=== PATIENT | female | born 1950 | race Caucasian/White ===

== ENCOUNTER 2017-10-04 19:53 | Inpatient (IN) | payer MEDICARE, MEDICAID ==
[~2017-10-04] VITALS: Ht 167.6 cm; Wt 124.8 kg
[~2017-10-04 19:53] MED LIST: HYDR-3965 PO; IBUP-1984 PO; LOSA1TAB39 PO; PRAV20TA4 PO; SERT50TA PO
[2017-10-04] MEDS ORDERED: enoxaparin 100mg/ml syringe SUBCUT ONE (20:20)
[2017-10-04] MEDS ORDERED: metoprolol tartrate 1mg/ml inj IV ONE (20:20)
[2017-10-04] MEDS ORDERED: enoxaparin 60mg/0.6ml syringe SUBCUT ONE (20:25)
[2017-10-04 20:56] LABS: BASOPHILS % (AUTO) 0.3 % (0-1); EOSINOPHILS # (AUTO) 0.2 X10'3 (0-0.9); EOSINOPHILS % (AUTO) 1.4 % (0-6); HEMOGLOBIN 13.5 g/dl (12.0-16.0); LYMPHOCYTES # (AUTO) 1.1 X10'3 (1.1-4.8); MEAN CORPUSCULAR HEMOGLOBIN 32.7 PG (27.0-31.0); MEAN CORPUSCULAR HGB CONC 33.6 % (33.0-36.5); MEAN CORPUSCULAR VOLUME 97.3 FL (78-98); MEAN PLATELET VOLUME 8.9 FL (7.4-10.4); MONOCYTES # (AUTO) 0.9 X10'3 (0-0.9); MONOCYTES % (AUTO) 7.3 % (2-12); NEUTROPHILS # (AUTO) 9.7 X10'3 (1.8-7.7); PLATELET COUNT 260 X10'3 (140-440); RED BLOOD COUNT 4.12 X10'6 (4.20-5.60); RED CELL DISTRIBUTION WIDTH 13.8 % (11.5-14.5); WHITE BLOOD COUNT 11.9 X10'3 (4.5-11.0)
[2017-10-04 21:14] LABS: ALANINE AMINOTRANSFERASE 92 U/L (12-78); ALBUMIN 3.1 G/DL (3.4-5.0); ALBUMIN/GLOBULIN RATIO 0.7 (1.1-1.5); ALKALINE PHOSPHATASE 132 IU/L (46-116); ANION GAP 10 (8-16); ASPARTATE AMINO TRANSFERASE 96 U/L (10-37); BILIRUBIN,TOTAL 1.2 MG/DL (0.1-1.0); BLOOD UREA NITROGEN 16 MG/DL (7-18); CALCIUM 9.7 MG/DL (8.5-10.1); CHLORIDE 101 MMOL/L (99-107); CREATININE 1.14 MG/DL (0.40-0.90); GLUCOSE 120 MG/DL (70-104); POTASSIUM 3.3 MMOL/L (3.5-5.1); SODIUM 138 MMOL/L (135-145); TOTAL CARBON DIOXIDE 27.2 MMOL/L (24-32); TOTAL PROTEIN 7.4 G/DL (6.4-8.2); eGFR 48 ML/MIN
[2017-10-04] MEDS ORDERED: verapamil 2.5 mg/ml inj IV ONE (21:35)
[2017-10-04] MEDS ORDERED: diltiazem-NS 100mg/100ml 100 ML IV ONE (21:35)
[2017-10-04 21:37] LABS: URINE AMPHETAMINE SCREEN POSITIVE (Neg); URINE BARBITUATE SCREEN NEGATIVE (Neg); URINE BENZODIAZEPINES SCREEN NEGATIVE (Neg); URINE CANNABINOID SCREEN NEGATIVE (Neg); URINE COCAINE SCREEN NEGATIVE (Neg); URINE METHADONE SCREEN NEGATIVE (Neg); URINE OPIATE SCREEN POSITIVE (Neg); URINE PHENCYCLIDINE SCREEN NEGATIVE (Neg)
[2017-10-04 21:38] LABS: CLARITY,URINE SLIGHTLY CLOUDY (Clear); COLOR,URINE YELLOW (Yellow); GLUCOSE, URINE NEGATIVE (Neg); KETONES,URINE NEGATIVE (Neg); LEUKOCYTE ESTERASE ,URINE NEGATIVE (Neg); NITRITES, URINE NEGATIVE (Neg); OCCULT BLOOD,URINE TRACE-INTACT (Neg); PROTEIN,URINE 30 mg/dl (Neg)
[2017-10-04 21:39] LABS: UA COLLECTION TYPE STRAIGHT CATH
[2017-10-04 21:41] LABS: CKMB RELATIVE INDEX 1.1 RATIO (0-2.5); CREATINE KINASE 1699 U/L (26-192); MAGNESIUM 1.6 MG/DL (1.5-2.4)
[2017-10-04 21:57] LABS: FINE GRANULAR CAST 0-3 /LPF (NEGATIVE); HYALINE CASTS 0-3 /LPF (NEGATIVE); SQUAMOUS EPITHELIAL CELL,UR MANY /LPF (FEW)
[2017-10-04 21:58] LABS: BACTERIA,URINE FEW /HPF (Neg); MUCUS STRANDS MODERATE /LPF (Neg); RBC,URINE 0-2 /HPF (0-2); WBC,URINE 0-4 /HPF (0-4)
[2017-10-04] MEDS ORDERED: normal saline 1000ML IV soln IVB ONE (22:25)
[2017-10-04] MEDS ORDERED: potassium 10mEq/100ml NS w/LIDOcaine (10mg/bag) IV ONE (22:25)
[2017-10-04] MEDS ORDERED: mag hydrox/Alum hydrox/simeth 30ml oral suspension PO PRN (23:35)
[2017-10-04] MEDS ORDERED: magnesium hydroxide 30ml (MOM) UD suspension PO PRN (23:35)
[2017-10-04] MEDS ORDERED: acetaminophen 325mg tablet PO PRN ×2 (23:35)
[2017-10-04] MEDS ORDERED: ondansetron/PF 4mg/2ml inj IV PRN (23:35)
[2017-10-05] VITALS (15 sets, daily range): BP systolic 99–140; BP diastolic 50–92
[2017-10-05] MEDS: diltiazem-NS 100mg/100ml 100 ML IV SCH ×2 (02:14→22:00)
[2017-10-05 06:10] LABS: BASOPHILS % (AUTO) 0.4 % (0-1); EOSINOPHILS # (AUTO) 0.1 X10'3 (0-0.9); EOSINOPHILS % (AUTO) 1.2 % (0-6); HEMATOCRIT 36.7 % (35.0-45.0); HEMOGLOBIN 12.1 g/dl (12.0-16.0); LYMPHOCYTES # (AUTO) 1.4 X10'3 (1.1-4.8); LYMPHOCYTES % (AUTO) 12.3 % (21-51); MEAN CORPUSCULAR HEMOGLOBIN 32.6 PG (27.0-31.0); MEAN CORPUSCULAR HGB CONC 32.9 % (33.0-36.5); MEAN CORPUSCULAR VOLUME 99.3 FL (78-98); MONOCYTES # (AUTO) 0.9 X10'3 (0-0.9); MONOCYTES % (AUTO) 8.6 % (2-12); NEUTROPHILS # (AUTO) 8.5 X10'3 (1.8-7.7); NEUTROPHILS % (AUTO) 77.5 % (42-75); PLATELET COUNT 231 X10'3 (140-440); RED BLOOD COUNT 3.69 X10'6 (4.20-5.60); RED CELL DISTRIBUTION WIDTH 13.9 % (11.5-14.5); WHITE BLOOD COUNT 10.9 X10'3 (4.5-11.0)
[2017-10-05 06:39] LABS: ALANINE AMINOTRANSFERASE 72 U/L (12-78); ALBUMIN 2.6 G/DL (3.4-5.0); ALBUMIN/GLOBULIN RATIO 0.7 (1.1-1.5); ALKALINE PHOSPHATASE 104 IU/L (46-116); ANION GAP 6 (8-16); ASPARTATE AMINO TRANSFERASE 73 U/L (10-37); BILIRUBIN,DIRECT 0.4 MG/DL (0-0.3); BILIRUBIN,TOTAL 1.1 MG/DL (0.1-1.0); BLOOD UREA NITROGEN 14 MG/DL (7-18); CALCIUM 9.5 MG/DL (8.5-10.1); CHLORIDE 104 MMOL/L (99-107); CREATINE KINASE 934 U/L (26-192); CREATININE 1.08 MG/DL (0.40-0.90); GLUCOSE 104 MG/DL (70-104); POTASSIUM 3.3 MMOL/L (3.5-5.1); SODIUM 136 MMOL/L (135-145); TOTAL CARBON DIOXIDE 26.4 MMOL/L (24-32); TOTAL PROTEIN 6.2 G/DL (6.4-8.2); eGFR 51 ML/MIN
[2017-10-05] MEDS: HYDROmorphone 1 mg/ml syringe IV PRN (13:48)
[2017-10-05] MEDS: furosemide 20MG tablet PO SCH ×2 (16:10→19:33)
[2017-10-05] MEDS ORDERED: potassium Cl 20 mEq SR tablet PO PRN (19:25)
[2017-10-05] MEDS ORDERED: potassium Cl 40MEQ/NS 500ml 500 ML IV PRN ×2 (19:25)
[2017-10-05] MEDS: carVEDilol 3.125mg tablet PO SCH (19:30)
[2017-10-05] MEDS: potassium Cl 20 mEq SR tablet PO PRN (19:33)
[2017-10-05] MEDS: enoxaparin 60mg/0.6ml syringe SUBCUT SCH (19:34)
[2017-10-06] VITALS (10 sets, daily range): BP systolic 93–131; BP diastolic 45–70
[2017-10-06] MEDS: potassium Cl 20 mEq SR tablet PO PRN ×4 (04:34→16:21)
[2017-10-06 05:44] LABS: BASOPHILS # (AUTO) 0.1 X10'3 (0-0.2); BASOPHILS % (AUTO) 0.5 % (0-1); EOSINOPHILS # (AUTO) 0.3 X10'3 (0-0.9); EOSINOPHILS % (AUTO) 2.9 % (0-6); HEMATOCRIT 33.6 % (35.0-45.0); HEMOGLOBIN 11.3 g/dl (12.0-16.0); LYMPHOCYTES # (AUTO) 1.2 X10'3 (1.1-4.8); LYMPHOCYTES % (AUTO) 11.6 % (21-51); MEAN CORPUSCULAR HEMOGLOBIN 32.5 PG (27.0-31.0); MEAN CORPUSCULAR HGB CONC 33.7 % (33.0-36.5); MEAN CORPUSCULAR VOLUME 96.4 FL (78-98); MEAN PLATELET VOLUME 8.9 FL (7.4-10.4); MONOCYTES % (AUTO) 9.5 % (2-12); NEUTROPHILS % (AUTO) 75.5 % (42-75); PLATELET COUNT 223 X10'3 (140-440); RED BLOOD COUNT 3.48 X10'6 (4.20-5.60); WHITE BLOOD COUNT 10.6 X10'3 (4.5-11.0)
[2017-10-06 05:58] LABS: ALBUMIN 2.3 G/DL (3.4-5.0); ANION GAP 9 (8-16); BLOOD UREA NITROGEN 11 MG/DL (7-18); BUN/CREATININE RATIO 12.4 (6.6-38.0); CALCIUM 8.8 MG/DL (8.5-10.1); CHLORIDE 102 MMOL/L (99-107); CREATININE 0.89 MG/DL (0.40-0.90); GLUCOSE 100 MG/DL (70-104); POTASSIUM 3.2 MMOL/L (3.5-5.1); SODIUM 138 MMOL/L (135-145); TOTAL CARBON DIOXIDE 27.2 MMOL/L (24-32); eGFR 64 ML/MIN
[2017-10-06] MEDS: diltiazem-NS 100mg/100ml 100 ML IV SCH (06:43)
[2017-10-06] MEDS: furosemide 20MG tablet PO SCH ×2 (08:36→20:23)
[2017-10-06] MEDS: carVEDilol 3.125mg tablet PO SCH ×2 (08:36→20:00)
[2017-10-06] MEDS: lisinopril 2.5mg tablet PO SCH (08:37)
[2017-10-06] MEDS: enoxaparin 60mg/0.6ml syringe SUBCUT SCH (08:38)
[2017-10-06] MEDS: HYDROmorphone 1 mg/ml syringe IV PRN (12:31)
[2017-10-06] MEDS ORDERED: temazepam 15mg capsule PO PRN (16:45)
[2017-10-06] MEDS: diltiazem CD 180mg cap (once-daily) PO SCH (20:23)
[2017-10-06] MEDS: apixaban 5mg tablet PO SCH (20:23)
[2017-10-07 03:00] VITALS: BP 107/59
[2017-10-07 06:07] LABS: BASOPHILS % (AUTO) 0.5 % (0-1); EOSINOPHILS # (AUTO) 0.3 X10'3 (0-0.9); EOSINOPHILS % (AUTO) 2.8 % (0-6); HEMATOCRIT 34.1 % (35.0-45.0); HEMOGLOBIN 11.4 g/dl (12.0-16.0); LYMPHOCYTES % (AUTO) 10.3 % (21-51); MEAN CORPUSCULAR HEMOGLOBIN 32.8 PG (27.0-31.0); MEAN CORPUSCULAR HGB CONC 33.5 % (33.0-36.5); MEAN CORPUSCULAR VOLUME 97.6 FL (78-98); MEAN PLATELET VOLUME 9.1 FL (7.4-10.4); MONOCYTES # (AUTO) 0.9 X10'3 (0-0.9); NEUTROPHILS # (AUTO) 7.5 X10'3 (1.8-7.7); NEUTROPHILS % (AUTO) 77.4 % (42-75); PLATELET COUNT 213 X10'3 (140-440); RED BLOOD COUNT 3.49 X10'6 (4.20-5.60); RED CELL DISTRIBUTION WIDTH 14.1 % (11.5-14.5); WHITE BLOOD COUNT 9.7 X10'3 (4.5-11.0)
[2017-10-07 06:21] LABS: ALBUMIN 2.2 G/DL (3.4-5.0); ANION GAP 8 (8-16); BLOOD UREA NITROGEN 12 MG/DL (7-18); BUN/CREATININE RATIO 12.1 (6.6-38.0); CALCIUM 9.4 MG/DL (8.5-10.1); CHLORIDE 102 MMOL/L (99-107); CREATININE 0.99 MG/DL (0.40-0.90); GLUCOSE 96 MG/DL (70-104); POTASSIUM 3.5 MMOL/L (3.5-5.1); SODIUM 136 MMOL/L (135-145); TOTAL CARBON DIOXIDE 26.2 MMOL/L (24-32); eGFR 56 ML/MIN
[2017-10-07 07:00] VITALS: BP 106/68
[2017-10-07] MEDS: diltiazem CD 180mg cap (once-daily) PO SCH (07:43)
[2017-10-07] MEDS: lisinopril 2.5mg tablet PO SCH (07:43)
[2017-10-07] MEDS: furosemide 20MG tablet PO SCH (07:44)
[2017-10-07] MEDS: HYDROmorphone 1 mg/ml syringe IV PRN ×2 (07:44→13:35)
[2017-10-07] MEDS: carVEDilol 3.125mg tablet PO SCH (07:44)
[2017-10-07] MEDS: apixaban 5mg tablet PO SCH (07:44)
[2017-10-07 11:00] VITALS: BP 93/52
[2017-10-07 15:00] VITALS: BP 101/57
== END 2017-10-07 17:00 | DRG 564 ==
LOC: ER 19:54 → ED HOLD 23:31 → PCU 3S 10-05 01:00
PROVIDERS: ADMIT Internal Medicine; ATTEND Internal Medicine
DX: T79.6XXA Traumatic ischemia of muscle, initial encounter (principal); I50.31 Acute diastolic (congestive) heart failure; Z68.41 Body mass index [BMI] 40.0-44.9, adult; I48.91 Unspecified atrial fibrillation; I11.0 Hypertensive heart disease with heart failure; F15.10 Other stimulant abuse, uncomplicated; E66.01 Morbid (severe) obesity due to excess calories; F17.210 Nicotine dependence, cigarettes, uncomplicated; G89.29 Other chronic pain; H35.30 Unspecified macular degeneration; M16.11 Unilateral primary osteoarthritis, right hip; E87.6 Hypokalemia; F32.9 Major depressive disorder, single episode, unspecified; M17.0 Bilateral primary osteoarthritis of knee; W06.XXXA Fall from bed, initial encounter; E78.5 Hyperlipidemia, unspecified; R79.89 Other specified abnormal findings of blood chemistry; Z79.01 Long term (current) use of anticoagulants; Y93.89 Activity, other specified; Y99.8 Other external cause status; Y92.092 Bedroom in other non-institutional residence as the place of occurrence of the external cause
CPT/HCPCS: 36415; 71045; 72170; 73700; 80048; 80053; 80076; 80305; 81001; 82550; 82553; 83735; 83880; 84484; 85025; 87070; 93005; 93306; 96374; 96375; 97110; 97162; 97530; 99285; A4315; A4649; A6212; A6250; J1170; J1650; J2405; J3480; J3490; J7030

== ENCOUNTER 2018-07-16 15:33 | Emergency (ER) | payer MEDICARE, MEDICAID ==
[~2018-07-16] VITALS: Ht 167.6 cm; Wt 113.6 kg
[~2018-07-16 15:33] MED LIST changes: -HYDR-3965 PO; -LOSA1TAB39 PO; -PRAV20TA4 PO; -SERT50TA PO
[2018-07-16 16:28] LABS: BASOPHILS # (AUTO) 0.1 X10'3 (0-0.2); BASOPHILS % (AUTO) 1.2 % (0-1); EOSINOPHILS # (AUTO) 0.2 X10'3 (0-0.9); HEMATOCRIT 40.5 % (35.0-45.0); HEMOGLOBIN 13.5 g/dl (12.0-16.0); LYMPHOCYTES % (AUTO) 11.6 % (21-51); MEAN CORPUSCULAR HEMOGLOBIN 33.4 PG (27.0-31.0); MEAN CORPUSCULAR HGB CONC 33.4 g/dL (33.0-36.5); MEAN PLATELET VOLUME 8.3 FL (7.4-10.4); MONOCYTES # (AUTO) 0.7 X10'3 (0-0.9); MONOCYTES % (AUTO) 8.1 % (2-12); NEUTROPHILS % (AUTO) 77.1 % (42-75); PLATELET COUNT 345 X10'3 (140-440); RED BLOOD COUNT 4.05 X10'6 (4.20-5.60); RED CELL DISTRIBUTION WIDTH 13.8 % (11.5-14.5); WHITE BLOOD COUNT 9.1 X10'3 (4.5-11.0)
[2018-07-16 16:41] LABS: INR 1.1 INR; PARTIAL THROMBOPLASTIN TIME 27 SECONDS (22-32)
[2018-07-16 16:44] LABS: ALANINE AMINOTRANSFERASE 28 U/L (12-78); ALBUMIN 3.6 G/DL (3.4-5.0); ALBUMIN/GLOBULIN RATIO 1.1 (1.1-1.5); ALKALINE PHOSPHATASE 141 IU/L (46-116); ANION GAP 10 (8-16); ASPARTATE AMINO TRANSFERASE 24 U/L (10-37); BILIRUBIN,TOTAL 0.9 MG/DL (0.1-1.0); BLOOD UREA NITROGEN 28 MG/DL (7-18); BUN/CREATININE RATIO 23.5 (6.6-38.0); CALCIUM 9.8 MG/DL (8.5-10.1); CHLORIDE 108 MMOL/L (99-107); CREATININE 1.19 MG/DL (0.40-0.90); GLUCOSE 103 MG/DL (70-104); POTASSIUM 3.9 MMOL/L (3.5-5.1); SODIUM 140 MMOL/L (135-145); TOTAL CARBON DIOXIDE 22.1 MMOL/L (24-32); TOTAL PROTEIN 6.9 G/DL (6.4-8.2); eGFR 45 ML/MIN
[2018-07-16] MEDS ORDERED: CARV3.122 PO (16:44)
[2018-07-16] MEDS ORDERED: OMEP-50 PO (16:44)
[2018-07-16] MEDS ORDERED: RIVA20TA PO (16:44)
[2018-07-16] MEDS ORDERED: POTA10TA36 PO (16:44)
[2018-07-16] MEDS ORDERED: ALEN70TA13 PO (16:44)
[2018-07-16] MEDS ORDERED: FURO40TA4 PO (16:44)
[2018-07-16] MEDS ORDERED: DILT180C95 PO (16:44)
[2018-07-16 16:53] LABS: CLARITY,URINE CLEAR (Clear); COLOR,URINE YELLOW (Yellow); GLUCOSE, URINE NEGATIVE (Neg); KETONES,URINE NEGATIVE (Neg); LEUKOCYTE ESTERASE ,URINE TRACE (Neg); NITRITES, URINE NEGATIVE (Neg); OCCULT BLOOD,URINE NEGATIVE (Neg); PROTEIN,URINE NEGATIVE (Neg); UROBILINOGEN,URINE 0.2 E.U/dL (0.2-1.0)
[2018-07-16 16:58] LABS: UA COLLECTION TYPE NON-SPECIFIED
[2018-07-16 17:00] LABS: BACTERIA,URINE FEW /HPF (Neg); MUCUS STRANDS FEW /LPF (Neg); RBC,URINE 0-2 /HPF (0-2); SQUAMOUS EPITHELIAL CELL,UR MANY /LPF (FEW)
[2018-07-16] MEDS ORDERED: normal saline 1000ML IV soln IVB ONE (18:50)
[2018-07-16] MEDS ORDERED: HYDROcodone/acetaminophen 10/325mg tab PO ONE (18:55)
[2018-07-16 19:13] LABS: URINE AMPHETAMINE SCREEN POSITIVE (Neg); URINE BARBITUATE SCREEN NEGATIVE (Neg); URINE BENZODIAZEPINES SCREEN NEGATIVE (Neg); URINE CANNABINOID SCREEN POSITIVE (Neg); URINE COCAINE SCREEN NEGATIVE (Neg); URINE METHADONE SCREEN NEGATIVE (Neg); URINE OPIATE SCREEN NEGATIVE (Neg); URINE PHENCYCLIDINE SCREEN NEGATIVE (Neg)
[2018-07-16 19:14] LABS: ETHANOL < 0.010 GM/DL (0.0-0.010)
[2018-07-16 19:27] VITALS: BP 147/83
--- NOTE | 2018-07-16 19:27 | NUR ---
hr 120, otherwise bss. pt has dc paperwork ready. just given norco and ns 1 liter bolus infusing. pt request to talke with md about results. i will updated dr. madsen. pt's brother at bedside.
== END 2018-07-16 20:32 | disposition home or self-care (01) ==
LOC: ER 15:33
DX: R55 Syncope and collapse (principal); E86.0 Dehydration; I95.9 Hypotension, unspecified; I50.9 Heart failure, unspecified; Z91.81 History of falling; F15.10 Other stimulant abuse, uncomplicated; R26.2 Difficulty in walking, not elsewhere classified; M25.551 Pain in right hip; Z79.899 Other long term (current) drug therapy; W18.49XA Other slipping, tripping and stumbling without falling, initial encounter; Y93.01 Activity, walking, marching and hiking; Y92.096 Garden or yard of other non-institutional residence as the place of occurrence of the external cause; Y99.9 Unspecified external cause status; I51.7 Cardiomegaly
CPT/HCPCS: 36415; 51702; 70450; 71045; 73502; 80053; 80305; 80320; 81001; 85025; 85610; 85730; 86885; 86900; 86901; 93005; 99284; J7030

== ENCOUNTER 2019-02-17 15:22 | Inpatient (IN) | payer MEDICARE, MEDICAID ==
[~2019-02-17] VITALS: Ht 167.6 cm; Wt 113.6 kg
[~2019-02-17 15:22] MED LIST changes: +ALEN70TA13 PO; +CARV3.122 PO; +DILT-36 PO; +FURO40TA4 PO; +OMEP-50 PO; +POTA10TA36 PO; +RIVA20TA PO
[2019-02-17 16:40] LABS: ALANINE AMINOTRANSFERASE 18 U/L (12-78); ALBUMIN 3.6 G/DL (3.4-5.0); ALBUMIN/GLOBULIN RATIO 0.9 (1.1-1.5); ALKALINE PHOSPHATASE 171 IU/L (46-116); ANION GAP 10 (8-16); ASPARTATE AMINO TRANSFERASE 49 U/L (10-37); BILIRUBIN,TOTAL 1.6 MG/DL (0.1-1.0); BLOOD UREA NITROGEN 14 MG/DL (7-18); BUN/CREATININE RATIO 17.1 (6.6-38.0); CALCIUM 9.9 MG/DL (8.5-10.1); CHLORIDE 104 MMOL/L (99-107); CREATININE 0.82 MG/DL (0.40-0.90); GLUCOSE 118 MG/DL (70-104); POTASSIUM 4.1 MMOL/L (3.5-5.1); SODIUM 138 MMOL/L (135-145); TOTAL CARBON DIOXIDE 23.8 MMOL/L (24-32); TOTAL PROTEIN 7.6 G/DL (6.4-8.2); eGFR 70 ML/MIN
[2019-02-17 16:43] LABS: PARTIAL THROMBOPLASTIN TIME 26 SECONDS (22-32)
[2019-02-17] MEDS ORDERED: aspirin 81mg tab.chew PO ONE (16:50)
[2019-02-17] MEDS ORDERED: heparin 10,000 units/1 ML INJ IV ONE (17:00)
[2019-02-17 17:02] LABS: BASOPHILS # (AUTO) 0.1 X10'3 (0-0.2); EOSINOPHILS % (AUTO) 0.1 % (0-6); HEMATOCRIT 38.2 % (35.0-45.0); HEMOGLOBIN 12.8 g/dl (12.0-16.0); LYMPHOCYTES # (AUTO) 0.7 X10'3 (1.1-4.8); LYMPHOCYTES % (AUTO) 8.3 % (21-51); MEAN CORPUSCULAR HEMOGLOBIN 33.2 PG (27.0-31.0); MEAN CORPUSCULAR HGB CONC 33.4 g/dL (33.0-36.5); MEAN CORPUSCULAR VOLUME 99.4 FL (78-98); MEAN PLATELET VOLUME 8.5 FL (7.4-10.4); MONOCYTES # (AUTO) 0.6 X10'3 (0-0.9); MONOCYTES % (AUTO) 6.9 % (2-12); NEUTROPHILS # (AUTO) 7.4 X10'3 (1.8-7.7); NEUTROPHILS % (AUTO) 83.7 % (42-75); PLATELET COUNT 244 X10'3 (140-440); RED BLOOD COUNT 3.84 X10'6 (4.20-5.60); RED CELL DISTRIBUTION WIDTH 15.6 % (11.5-14.5); WHITE BLOOD COUNT 8.9 X10'3 (4.5-11.0)
[2019-02-17 17:15] LABS: ETHANOL < 0.010 GM/DL (0.0-0.010)
[2019-02-17] MEDS: metoprolol tartrate 1mg/ml inj IV SCH ×9 (17:15→19:58)
[2019-02-17] MEDS: heparin 25,000 UNIT/250ml bag 250 ML IV SCH (17:31)
[2019-02-17] MEDS ORDERED: ondansetron/PF 4mg/2ml inj IV PRN (18:00)
[2019-02-17] MEDS ORDERED: mag hydrox/Alum hydrox/simeth 30ml oral suspension PO PRN (18:00)
[2019-02-17] MEDS ORDERED: magnesium hydroxide 30ml (MOM) UD suspension PO PRN (18:00)
[2019-02-17] MEDS ORDERED: acetaminophen 325mg tablet PO PRN (18:00)
[2019-02-17] MEDS ORDERED: morphine 2 MG/ML inj. syringe IV PRN (18:00)
[2019-02-17] MEDS ORDERED: LORazepam 2 mg/ml vial IV PRN (18:15)
[2019-02-17] MEDS: normal saline 1000ml 1,000 ML IV SCH (18:44)
[2019-02-17 19:21] LABS: CLARITY,URINE SLIGHTLY CLOUDY (Clear); COLOR,URINE AMBER (Yellow); GLUCOSE, URINE NEGATIVE (Neg); KETONES,URINE TRACE mg/dl (Neg); LEUKOCYTE ESTERASE ,URINE SMALL (Neg); NITRITES, URINE POSITIVE (Neg); OCCULT BLOOD,URINE SMALL (Neg); PH,URINE 5.5 (4.8-8.0); PROTEIN,URINE 30 mg/dl (Neg)
[2019-02-17 19:28] LABS: UA COLLECTION TYPE FOLEY CATH
[2019-02-17 19:30] LABS: BACTERIA,URINE 3+ /HPF (Neg); MUCUS STRANDS NONE SEEN /LPF (Neg); RBC,URINE 0-2 /HPF (0-2); SQUAMOUS EPITHELIAL CELL,UR NONE SEEN /LPF (FEW); WBC CLUMPS,URINE FEW /HPF (NEGATIVE); WBC,URINE 30-50 /HPF (0-4)
[2019-02-17 19:35] LABS: URINE AMPHETAMINE SCREEN POSITIVE (Neg); URINE BARBITUATE SCREEN NEGATIVE (Neg); URINE BENZODIAZEPINES SCREEN NEGATIVE (Neg); URINE CANNABINOID SCREEN NEGATIVE (Neg); URINE COCAINE SCREEN NEGATIVE (Neg); URINE METHADONE SCREEN NEGATIVE (Neg); URINE OPIATE SCREEN NEGATIVE (Neg); URINE PHENCYCLIDINE SCREEN NEGATIVE (Neg)
[2019-02-17] MEDS: furosemide 10 MG/1 ML 10ml inj IV SCH (20:04)
[2019-02-17] MEDS: CefTRIAXone/D5W-Rocephin 1gm 50 ML IV SCH (20:08)
[2019-02-17] MEDS: carVEDilol 3.125mg tablet PO SCH (20:46)
[2019-02-17] MEDS: diltiazem CD 180mg cap (once-daily) PO SCH (20:46)
[2019-02-17 22:00] VITALS: BP 121/83
--- NOTE | 2019-02-17 23:01 | NUR ---
Called Dr. Bellamy regarding the critical value with troponin being 10.51. He acknowledged it but did not order anything at this point.
[2019-02-18] MEDS: heparin 25,000 UNIT/250ml bag 250 ML IV SCH ×3 (00:17→21:20)
[2019-02-18] MEDS: heparin 10,000 units/1 ML INJ IV PRN ×2 (00:24→13:33)
[2019-02-18 02:00] VITALS: BP 110/64
[2019-02-18] MEDS: normal saline 1000ml 1,000 ML IV SCH ×2 (03:57→08:17)
[2019-02-18 05:49] LABS: BASOPHILS # (AUTO) 0.1 X10'3 (0-0.2); EOSINOPHILS # (AUTO) 0.2 X10'3 (0-0.9); EOSINOPHILS % (AUTO) 2.2 % (0-6); HEMATOCRIT 37.6 % (35.0-45.0); HEMOGLOBIN 12.4 g/dl (12.0-16.0); LYMPHOCYTES # (AUTO) 1.4 X10'3 (1.1-4.8); LYMPHOCYTES % (AUTO) 15.9 % (21-51); MEAN CORPUSCULAR HEMOGLOBIN 32.7 PG (27.0-31.0); MEAN CORPUSCULAR HGB CONC 32.9 g/dL (33.0-36.5); MEAN CORPUSCULAR VOLUME 99.3 FL (78-98); MEAN PLATELET VOLUME 8.5 FL (7.4-10.4); MONOCYTES # (AUTO) 0.7 X10'3 (0-0.9); MONOCYTES % (AUTO) 8.7 % (2-12); NEUTROPHILS # (AUTO) 6.2 X10'3 (1.8-7.7); NEUTROPHILS % (AUTO) 72.2 % (42-75); PLATELET COUNT 225 X10'3 (140-440); RED BLOOD COUNT 3.78 X10'6 (4.20-5.60); RED CELL DISTRIBUTION WIDTH 15.7 % (11.5-14.5); WHITE BLOOD COUNT 8.6 X10'3 (4.5-11.0)
[2019-02-18 06:22] LABS: ALBUMIN 3.2 G/DL (3.4-5.0); ANION GAP 10 (8-16); BLOOD UREA NITROGEN 13 MG/DL (7-18); BUN/CREATININE RATIO 15.5 (6.6-38.0); CALCIUM 9.5 MG/DL (8.5-10.1); CHLORIDE 104 MMOL/L (99-107); CREATININE 0.84 MG/DL (0.40-0.90); GLUCOSE 98 MG/DL (70-104); POTASSIUM 3.4 MMOL/L (3.5-5.1); SODIUM 141 MMOL/L (135-145); TOTAL CARBON DIOXIDE 27.1 MMOL/L (24-32); eGFR 68 ML/MIN
--- NOTE | 2019-02-18 06:34 | NUR ---
Problems reprioritized. Patient report given to Gretel, questions answered & plan of care reviewed with .
[2019-02-18 07:00] VITALS: BP 124/71
[2019-02-18] MEDS: potassium chloride 10mEq ER tablet PO SCH (10:09)
[2019-02-18] MEDS: pantoprazole 40mg Tablet.DR PO SCH (10:09)
[2019-02-18] MEDS: atorvastatin 20mg tablet PO SCH (10:09)
[2019-02-18] MEDS: carVEDilol 3.125mg tablet PO SCH ×2 (10:10→22:36)
[2019-02-18] MEDS: CefTRIAXone/D5W-Rocephin 1gm 50 ML IV SCH (10:13)
[2019-02-18 11:00] VITALS: BP 127/64
--- NOTE | 2019-02-18 11:16 | NUR ---
AGE: 89 [address], Pt has K level of 4.3 cannot give Lasix without your ok and she does not have any K or Mg replacement orders as well. Marie second page to
[2019-02-18] MEDS: furosemide 10 MG/1 ML 10ml inj IV SCH (12:34)
[2019-02-18] MEDS ORDERED: potassium CL 10mEq/100ml bag 100 ML IV PRN (13:10)
[2019-02-18] MEDS ORDERED: magnesium Cl slow-release 64mg tablet PO PRN (13:10)
[2019-02-18] MEDS ORDERED: potassium Cl 20 mEq SR tablet PO PRN (13:10)
[2019-02-18] MEDS ORDERED: magnesium 4gm in 100ml NS 100 ML IV PRN (13:10)
[2019-02-18] MEDS: aspirin 81mg tablet.DR PO SCH (13:59)
[2019-02-18] MEDS: morphine 2 MG/ML inj. syringe IV PRN ×2 (14:00→22:35)
[2019-02-18 15:00] VITALS: BP 127/64
[2019-02-18] MEDS: potassium Cl 20 mEq SR tablet PO PRN ×2 (17:23→22:39)
[2019-02-18 18:00] VITALS: BP 91/49
--- NOTE | 2019-02-18 18:00 | NUR ---
Patient in room MED 311. I have received report from DALTON ANAND and had the opportunity to ask questions and assume patient care.
[2019-02-18 22:00] VITALS: BP 93/66
[2019-02-18] MEDS: furosemide 40mg/4ml inj IV SCH (22:36)
[2019-02-18] MEDS: diltiazem CD 180mg cap (once-daily) PO SCH (22:38)
[2019-02-18] MEDS: lactobacillus rhamnosus 10,000 MMU CELLS/CAPSULE PO SCH (22:38)
--- NOTE | 2019-02-19 01:19 | NUR ---
Spoke to Dr Bellamy an he ordered NS at 100mls/h to be DC'd
[2019-02-19 02:00] VITALS: BP 97/53
[2019-02-19] MEDS: potassium Cl 20 mEq SR tablet PO PRN (03:33)
[2019-02-19 04:35] LABS: BASOPHILS # (AUTO) 0.1 X10'3 (0-0.2); BASOPHILS % (AUTO) 0.8 % (0-1); EOSINOPHILS # (AUTO) 0.3 X10'3 (0-0.9); EOSINOPHILS % (AUTO) 3.2 % (0-6); HEMATOCRIT 33.4 % (35.0-45.0); HEMOGLOBIN 10.9 g/dl (12.0-16.0); LYMPHOCYTES # (AUTO) 1.5 X10'3 (1.1-4.8); LYMPHOCYTES % (AUTO) 16.5 % (21-51); MEAN CORPUSCULAR HEMOGLOBIN 32.9 PG (27.0-31.0); MEAN CORPUSCULAR HGB CONC 32.5 g/dL (33.0-36.5); MEAN CORPUSCULAR VOLUME 101.1 FL (78-98); MONOCYTES # (AUTO) 0.9 X10'3 (0-0.9); MONOCYTES % (AUTO) 10.5 % (2-12); NEUTROPHILS # (AUTO) 6.1 X10'3 (1.8-7.7); PLATELET COUNT 187 X10'3 (140-440); RED BLOOD COUNT 3.31 X10'6 (4.20-5.60); RED CELL DISTRIBUTION WIDTH 16.1 % (11.5-14.5); WHITE BLOOD COUNT 8.9 X10'3 (4.5-11.0)
[2019-02-19] MEDS: morphine 2 MG/ML inj. syringe IV PRN ×3 (04:43→21:10)
[2019-02-19 04:45] LABS: ALBUMIN 2.7 G/DL (3.4-5.0); ANION GAP 7 (8-16); BLOOD UREA NITROGEN 14 MG/DL (7-18); BUN/CREATININE RATIO 15.6 (6.6-38.0); CALCIUM 8.8 MG/DL (8.5-10.1); CHLORIDE 103 MMOL/L (99-107); GLUCOSE 107 MG/DL (70-104); MAGNESIUM 1.4 MG/DL (1.5-2.4); POTASSIUM 3.5 MMOL/L (3.5-5.1); SODIUM 137 MMOL/L (135-145); TOTAL CARBON DIOXIDE 27.5 MMOL/L (24-32); eGFR 62 ML/MIN
--- NOTE | 2019-02-19 06:00 | NUR ---
Patient in room MED 311. I have received report from Gabriela ANAND and had the opportunity to ask questions and assume patient care.
--- NOTE | 2019-02-19 06:00 | NUR ---
Problems reprioritized. Patient report given, questions answered & plan of care reviewed with Marie ANAND.
[2019-02-19 07:00] VITALS: BP 107/72
[2019-02-19] MEDS: lactobacillus rhamnosus 10,000 MMU CELLS/CAPSULE PO SCH ×2 (07:57→21:10)
[2019-02-19] MEDS: aspirin 81mg tablet.DR PO SCH (07:57)
[2019-02-19] MEDS: potassium chloride 10mEq ER tablet PO SCH (07:57)
[2019-02-19] MEDS: atorvastatin 20mg tablet PO SCH (07:57)
[2019-02-19] MEDS: CefTRIAXone/D5W-Rocephin 1gm 50 ML IV SCH (07:58)
[2019-02-19] MEDS: pantoprazole 40mg Tablet.DR PO SCH (07:58)
[2019-02-19] MEDS: furosemide 40mg/4ml inj IV SCH ×2 (07:59→21:09)
[2019-02-19] MEDS: carVEDilol 3.125mg tablet PO SCH ×2 (08:06→21:10)
[2019-02-19] MEDS: heparin 10,000 units/1 ML INJ IV PRN (08:23)
[2019-02-19] MEDS: heparin 25,000 UNIT/250ml bag 250 ML IV SCH (08:25)
--- NOTE | 2019-02-19 09:42 | NUR ---
311: [facility] - who is pediatric social worker today? positive grecia cunningham refusing cath until SS/CM consults complete. No PMD or honey producer.
--- NOTE | 2019-02-19 10:34 | NUR ---
Alexander Guzman Can you please call us about the pt Thank You [phone] Abbott about pt's status about going to the laborer plumbing
[2019-02-19 11:00] VITALS: BP 99/62
--- NOTE | 2019-02-19 11:36 | NUR ---
DR. NOBLE @ BEDSIDE. NEW ORDERS RECEIVED: NO HEART CATH - MEDICAL MANAGEMENT, D/C HEPARIN GTT, RESTART XARELTO HOME DOSE, CT HEAD W/O CONTRAST
[2019-02-19] MEDS: rivaroxaban 20mg tablet PO SCH (11:40)
--- NOTE | 2019-02-19 11:42 | NUR ---
MIXER HELPER PAGED 311: INNA - CT HEAD ORDERS, NO CONTRAST, NEEDS GURNEY. TY
--- NOTE | 2019-02-19 12:11 | NUR ---
311: WELLS - IN W/C READY FOR CT. TY
[2019-02-19 15:00] VITALS: BP 99/62
[2019-02-19 18:00] VITALS: BP 109/67
--- NOTE | 2019-02-19 18:00 | NUR ---
Patient in room MED 311. I have received report from DALTON ANAND and had the opportunity to ask questions and assume patient care.
[2019-02-19] MEDS ORDERED: rivaroxaban 20mg tablet PO ONE (20:00)
[2019-02-19] MEDS: diltiazem CD 180mg cap (once-daily) PO SCH (21:09)
[2019-02-19 22:00] VITALS: BP 108/63
[2019-02-20 02:00] VITALS: BP 92/46
[2019-02-20 03:25] LABS: BASOPHILS # (AUTO) 0.1 X10'3 (0-0.2); BASOPHILS % (AUTO) 0.7 % (0-1); EOSINOPHILS # (AUTO) 0.3 X10'3 (0-0.9); HEMATOCRIT 33.5 % (35.0-45.0); HEMOGLOBIN 11.1 g/dl (12.0-16.0); LYMPHOCYTES # (AUTO) 1.2 X10'3 (1.1-4.8); LYMPHOCYTES % (AUTO) 14.6 % (21-51); MEAN CORPUSCULAR VOLUME 100.1 FL (78-98); MEAN PLATELET VOLUME 9.1 FL (7.4-10.4); MONOCYTES # (AUTO) 0.9 X10'3 (0-0.9); MONOCYTES % (AUTO) 10.4 % (2-12); NEUTROPHILS % (AUTO) 71.3 % (42-75); PLATELET COUNT 189 X10'3 (140-440); RED BLOOD COUNT 3.35 X10'6 (4.20-5.60); RED CELL DISTRIBUTION WIDTH 16.1 % (11.5-14.5); WHITE BLOOD COUNT 8.5 X10'3 (4.5-11.0)
[2019-02-20 03:30] LABS: ALBUMIN 2.7 G/DL (3.4-5.0); ANION GAP 7 (8-16); BLOOD UREA NITROGEN 15 MG/DL (7-18); BUN/CREATININE RATIO 16.7 (6.6-38.0); CALCIUM 8.8 MG/DL (8.5-10.1); CHLORIDE 99 MMOL/L (99-107); GLUCOSE 127 MG/DL (70-104); MAGNESIUM 1.5 MG/DL (1.5-2.4); POTASSIUM 3.3 MMOL/L (3.5-5.1); SODIUM 135 MMOL/L (135-145); TOTAL CARBON DIOXIDE 29.3 MMOL/L (24-32); eGFR 62 ML/MIN
[2019-02-20 06:00] VITALS: BP 112/61
--- NOTE | 2019-02-20 06:00 | NUR ---
Problems reprioritized. Patient report given, questions answered & plan of care reviewed with Sobeida ANAND.
--- NOTE | 2019-02-20 06:40 | NUR ---
Patient in room MED 311. I have received report from CHENG Duarte and had the opportunity to ask questions and assume patient care.
[2019-02-20] MEDS: CefTRIAXone/D5W-Rocephin 1gm 50 ML IV SCH (08:51)
[2019-02-20] MEDS: furosemide 40mg/4ml inj IV SCH ×2 (08:51→21:03)
[2019-02-20] MEDS: pantoprazole 40mg Tablet.DR PO SCH (08:52)
[2019-02-20] MEDS: lactobacillus rhamnosus 10,000 MMU CELLS/CAPSULE PO SCH ×2 (08:52→21:03)
[2019-02-20] MEDS: carVEDilol 3.125mg tablet PO SCH ×2 (08:52→21:02)
[2019-02-20] MEDS: aspirin 81mg tablet.DR PO SCH (08:52)
[2019-02-20] MEDS: rivaroxaban 20mg tablet PO SCH (08:52)
[2019-02-20] MEDS: atorvastatin 20mg tablet PO SCH (08:52)
[2019-02-20] MEDS: potassium chloride 10mEq ER tablet PO SCH (08:52)
[2019-02-20 11:00] VITALS: BP 118/65
[2019-02-20] MEDS: morphine 2 MG/ML inj. syringe IV PRN ×2 (11:23→21:14)
--- NOTE | 2019-02-20 11:26 | NUR ---
ASKED BY PRIMARY RN RASTA TO ADMIN MORPHINE
--- NOTE | 2019-02-20 11:40 | NUR ---
PAGER ID: [phone] MESSAGE: Patient Justyna Munoz Rm#[phone]. Patient has red rashes under pannus and breasts. Would you like Nystatin Powder ordered? Thank you. CHENG Vidales #[phone] ([facility])
[2019-02-20] MEDS: potassium Cl 20 mEq SR tablet PO PRN ×3 (13:09→21:03)
--- NOTE | 2019-02-20 13:50 | NUR ---
Patient refused physical therapy today. Encouragement and education was offered. Pt states she is "tired" and "just wants to sleep".
[2019-02-20 15:00] VITALS: BP 116/68
[2019-02-20 18:00] VITALS: BP 124/79
--- NOTE | 2019-02-20 18:40 | NUR ---
Problems reprioritized. Patient report given, questions answered & plan of care reviewed with CHENG Mccormick
--- NOTE | 2019-02-20 19:24 | NUR ---
REPORT REC'D FROM CHENG MAGDALENO.
[2019-02-20] MEDS: diltiazem CD 180mg cap (once-daily) PO SCH (21:03)
[2019-02-21 02:00] VITALS: BP 125/76
[2019-02-21 06:00] VITALS: BP 106/55
--- NOTE | 2019-02-21 06:10 | NUR ---
Patient in room MED 311. I have received report from CHENG Mccormick and had the opportunity to ask questions and assume patient care.
[2019-02-21 06:13] LABS: ALBUMIN 2.8 G/DL (3.4-5.0); ANION GAP 7 (8-16); BLOOD UREA NITROGEN 12 MG/DL (7-18); BUN/CREATININE RATIO 15.6 (6.6-38.0); CALCIUM 9.6 MG/DL (8.5-10.1); CHLORIDE 99 MMOL/L (99-107); CREATININE 0.77 MG/DL (0.40-0.90); GLUCOSE 101 MG/DL (70-104); MAGNESIUM 1.7 MG/DL (1.5-2.4); POTASSIUM 3.5 MMOL/L (3.5-5.1); SODIUM 135 MMOL/L (135-145); TOTAL CARBON DIOXIDE 29.5 MMOL/L (24-32); eGFR 75 ML/MIN
[2019-02-21 06:15] LABS: BASOPHILS # (AUTO) 0.1 X10'3 (0-0.2); BASOPHILS % (AUTO) 0.7 % (0-1); EOSINOPHILS # (AUTO) 0.3 X10'3 (0-0.9); EOSINOPHILS % (AUTO) 3.4 % (0-6); HEMATOCRIT 34.3 % (35.0-45.0); HEMOGLOBIN 11.3 g/dl (12.0-16.0); LYMPHOCYTES # (AUTO) 1.4 X10'3 (1.1-4.8); LYMPHOCYTES % (AUTO) 16.2 % (21-51); MEAN CORPUSCULAR HEMOGLOBIN 32.7 PG (27.0-31.0); MEAN CORPUSCULAR HGB CONC 32.9 g/dL (33.0-36.5); MEAN CORPUSCULAR VOLUME 99.3 FL (78-98); MEAN PLATELET VOLUME 9.3 FL (7.4-10.4); NEUTROPHILS % (AUTO) 68.7 % (42-75); PLATELET COUNT 208 X10'3 (140-440); RED BLOOD COUNT 3.46 X10'6 (4.20-5.60); RED CELL DISTRIBUTION WIDTH 15.9 % (11.5-14.5); WHITE BLOOD COUNT 8.8 X10'3 (4.5-11.0)
--- NOTE | 2019-02-21 06:34 | NUR ---
REPORT GIVEN TO CHENG AL.
[2019-02-21] MEDS: carVEDilol 3.125mg tablet PO SCH ×2 (07:46→20:01)
[2019-02-21] MEDS: lactobacillus rhamnosus 10,000 MMU CELLS/CAPSULE PO SCH ×2 (07:48→20:02)
[2019-02-21] MEDS: aspirin 81mg tablet.DR PO SCH (07:48)
[2019-02-21] MEDS: pantoprazole 40mg Tablet.DR PO SCH (07:48)
[2019-02-21] MEDS: furosemide 40mg/4ml inj IV SCH (07:48)
[2019-02-21] MEDS: CefTRIAXone/D5W-Rocephin 1gm 50 ML IV SCH (07:48)
[2019-02-21] MEDS: atorvastatin 20mg tablet PO SCH (07:48)
[2019-02-21] MEDS: rivaroxaban 20mg tablet PO SCH (07:49)
[2019-02-21] MEDS: potassium chloride 10mEq ER tablet PO SCH (08:45)
[2019-02-21] MEDS: morphine 2 MG/ML inj. syringe IV PRN ×2 (08:46→20:04)
[2019-02-21 11:00] VITALS: BP 108/57
[2019-02-21 15:00] VITALS: BP 123/71
[2019-02-21 18:00] VITALS: BP 136/56
--- NOTE | 2019-02-21 18:25 | NUR ---
Patient in room MED 311. I have received report from CHENG Friedman and had the opportunity to ask questions and assume patient care.
--- NOTE | 2019-02-21 18:28 | NUR ---
Problems reprioritized. Patient report given, questions answered & plan of care reviewed with CHNEG Leyva.
[2019-02-21] MEDS: furosemide 40mg tablet PO SCH (20:02)
[2019-02-21] MEDS: nystatin 15 GM powder TP SCH ×2 (21:00→21:13)
[2019-02-21] MEDS: diltiazem CD 180mg cap (once-daily) PO SCH (21:13)
[2019-02-21 22:00] VITALS: BP 115/57
[2019-02-22 02:00] VITALS: BP 104/52
[2019-02-22] MEDS: morphine 2 MG/ML inj. syringe IV PRN (04:24)
[2019-02-22 04:49] LABS: BASOPHILS # (AUTO) 0.1 X10'3 (0-0.2); EOSINOPHILS # (AUTO) 0.3 X10'3 (0-0.9); EOSINOPHILS % (AUTO) 3.4 % (0-6); HEMATOCRIT 34.3 % (35.0-45.0); HEMOGLOBIN 11.6 g/dl (12.0-16.0); LYMPHOCYTES # (AUTO) 1.4 X10'3 (1.1-4.8); MEAN CORPUSCULAR HGB CONC 33.8 g/dL (33.0-36.5); MEAN CORPUSCULAR VOLUME 97.5 FL (78-98); MEAN PLATELET VOLUME 9.2 FL (7.4-10.4); MONOCYTES % (AUTO) 11.6 % (2-12); NEUTROPHILS # (AUTO) 5.6 X10'3 (1.8-7.7); PLATELET COUNT 229 X10'3 (140-440); RED BLOOD COUNT 3.52 X10'6 (4.20-5.60); RED CELL DISTRIBUTION WIDTH 15.7 % (11.5-14.5); WHITE BLOOD COUNT 8.4 X10'3 (4.5-11.0)
[2019-02-22 04:54] LABS: ALBUMIN 2.8 G/DL (3.4-5.0); ANION GAP 8 (8-16); BLOOD UREA NITROGEN 16 MG/DL (7-18); BUN/CREATININE RATIO 20.3 (6.6-38.0); CALCIUM 9.8 MG/DL (8.5-10.1); CHLORIDE 98 MMOL/L (99-107); CREATININE 0.79 MG/DL (0.40-0.90); GLUCOSE 107 MG/DL (70-104); MAGNESIUM 1.8 MG/DL (1.5-2.4); POTASSIUM 3.8 MMOL/L (3.5-5.1); SODIUM 134 MMOL/L (135-145); TOTAL CARBON DIOXIDE 28.5 MMOL/L (24-32); eGFR 73 ML/MIN
[2019-02-22 06:00] VITALS: BP 101/56
--- NOTE | 2019-02-22 06:20 | NUR ---
Problems reprioritized. Patient report given, questions answered & plan of care reviewed with CHENG Friedman.
--- NOTE | 2019-02-22 06:20 | NUR ---
Patient in room MED 311. I have received report from CHENG Leyva and had the opportunity to ask questions and assume patient care.
[2019-02-22] MEDS: nystatin 15 GM powder TP SCH ×2 (08:00→08:26)
[2019-02-22] MEDS: pantoprazole 40mg Tablet.DR PO SCH (08:24)
[2019-02-22] MEDS: furosemide 40mg tablet PO SCH (08:24)
[2019-02-22] MEDS: potassium chloride 10mEq ER tablet PO SCH (08:25)
[2019-02-22] MEDS: aspirin 81mg tablet.DR PO SCH (08:25)
[2019-02-22] MEDS: atorvastatin 20mg tablet PO SCH (08:25)
[2019-02-22] MEDS: lactobacillus rhamnosus 10,000 MMU CELLS/CAPSULE PO SCH (08:25)
[2019-02-22] MEDS: carVEDilol 3.125mg tablet PO SCH (08:25)
[2019-02-22] MEDS: CefTRIAXone/D5W-Rocephin 1gm 50 ML IV SCH (08:25)
[2019-02-22] MEDS: rivaroxaban 20mg tablet PO SCH (08:25)
--- NOTE | 2019-02-22 10:05 | NUR ---
Initial: Pt PO 75-100% avg heart healthy diet meeting needs. Admit w/ weakness, CHF, NSTEMI, and positive for meth. LBM 02/20. No nutrition concerns at this time. Will continue to monitor. Rec: 1. continue heart healthy diet 2. bowel care as needed 3. wt per rx Addendum: 02/22/19 at [address] Amended: Links added.
[2019-02-22 11:00] VITALS: BP 98/48
--- NOTE | 2019-02-22 12:15 | NUR ---
Patient stable for transfer per MD orders. Packed sent with [facility] personnel. Wound photos taken upon discharge. PIV discontinued, cannula intact, clean dry dressing in place. inside sales trainer removed. All personal belongings collected and sent with patient. [facility] personnel wheeled patient off of unit at 1215.
--- NOTE | 2019-02-22 12:59 | NUR ---
called report to Latricia at [facility] at this time. All questions answered.
== END 2019-02-22 12:15 | DRG 280 ==
LOC: ER 15:23 → ED HOLD 17:57 → MED 3N 22:18
PROVIDERS: ADMIT Family Medicine; ATTEND Family Medicine
DX: I21.4 Non-ST elevation (NSTEMI) myocardial infarction (principal); I50.33 Acute on chronic diastolic (congestive) heart failure; N39.0 Urinary tract infection, site not specified; Z68.41 Body mass index [BMI] 40.0-44.9, adult; I11.0 Hypertensive heart disease with heart failure; E66.01 Morbid (severe) obesity due to excess calories; E78.5 Hyperlipidemia, unspecified; F15.10 Other stimulant abuse, uncomplicated; F17.210 Nicotine dependence, cigarettes, uncomplicated; G89.4 Chronic pain syndrome; H54.8 Legal blindness, as defined in USA; F32.9 Major depressive disorder, single episode, unspecified; M25.551 Pain in right hip; R47.81 Slurred speech; B96.20 Unspecified Escherichia coli [E. coli] as the cause of diseases classified elsewhere; I48.91 Unspecified atrial fibrillation; K04.7 Periapical abscess without sinus; Z79.01 Long term (current) use of anticoagulants; Z86.73 Personal history of transient ischemic attack (TIA), and cerebral infarction without residual deficits; Z91.14 Patient's other noncompliance with medication regimen; Z91.19 Patient's noncompliance with other medical treatment and regimen; Z90.49 Acquired absence of other specified parts of digestive tract; Z71.51 Drug abuse counseling and surveillance of drug abuser; Z71.6 Tobacco abuse counseling
CPT/HCPCS: 36415; 70450; 71045; 80048; 80053; 80305; 80320; 81001; 83605; 83735; 83880; 84145; 84484; 85025; 85610; 85730; 87040; 87077; 87081; 87088; 87186; 93005; 93306; 96374; 97162; 97530; 99285; G0378; J0696; J1644; J1940; J2060; J2270; J3490; J7030